=== PATIENT | female | born 1935 | race Caucasian/White ===

== ENCOUNTER 2020-02-27 08:40 | Emergency (ER) | payer OTHER ==
[~2020-02-27] VITALS: Ht 157.5 cm; Wt 58.1 kg
[2020-02-27] MEDS ORDERED: Keflex500 MG PO (11:26)
== END 2020-02-27 11:50 | disposition home or self-care (01) ==
LOC: ER 08:40
DX: L03.115 Cellulitis of right lower limb (principal)
CPT/HCPCS: 93971; 99283-25; A9270-GY

== ENCOUNTER → 2020-03-04 | Outpatient (CLI) | payer OTHER ==
[~2020-03-04] MED LIST: Keflex500 MG PO
== END ==
LOC: OLS 15:37 → LAB SHORT 15:37
DX: L03.115 Cellulitis of right lower limb (principal)
CPT/HCPCS: 87070; 87205